=== PATIENT | male | born 1970 | race Two or more races ===

== ENCOUNTER 2022-01-22 11:46 | Emergency (ER) | payer MEDICAID, OTHER ==
[~2022-01-22] VITALS: Ht 175.3 cm; Wt 100.0 kg
[2022-01-22 14:07] VITALS: BP 125/92
[2022-01-22] MEDS ORDERED: METF-370 PO (15:28)
[2022-01-22] MEDS ORDERED: ACET-1080 PO (15:28)
== END 2022-01-22 15:35 | disposition home or self-care (01) ==
LOC: ER 11:46
DX: S60.011A Contusion of right thumb without damage to nail, initial encounter (principal); E11.9 Type 2 diabetes mellitus without complications; W23.0XXA Caught, crushed, jammed, or pinched between moving objects, initial encounter; Y93.89 Activity, other specified; Y92.89 Other specified places as the place of occurrence of the external cause; Y99.8 Other external cause status
CPT/HCPCS: 73130

== ENCOUNTER 2022-03-09 13:21 | Emergency (ER) | payer SELFPAY ==
[~2022-03-09] VITALS: Ht 175.3 cm; Wt 99.3 kg
[~2022-03-09 13:21] MED LIST: ACET-1080 PO; METF-370 PO
[2022-03-09 13:41] VITALS: BP 132/95
[2022-03-09 15:23] LABS: Basophils # (auto) 0.1 10 ^3/uL (0-0.2); Eosinophils # (auto) 0.1 10 ^3/uL (0-0.8); Eosinophils % (auto) 1.1 % (0.0-7.0); Hematocrit 45.1 % (41.0-53.0); Lymphocytes # (auto) 1.5 10 ^3/uL (0.4-5.4); Lymphocytes % (auto) 20.1 % (10.0-50.0); Mean Corpuscular Hgb Conc. 33.3 g/dL (32.0-36.0); Mean Corpuscular Volume 84.2 fL (80.0-100.0); Monocytes # (auto) 0.6 10 ^3/uL (0-1.3); Monocytes % (auto) 7.8 % (0.0-12.0); Neutrophils # (auto) 5.1 10 ^3/uL (1.6-8.6); Nucleated Red Blood Cells % 0.1 %; Red Blood Cells 5.35 10^6/uL (4.5-5.90); Red Cell Distribution Width 13.7 % (11.8-14.3); White Blood Cell 7.3 10^3/uL (4.4-10.8)
[2022-03-09 15:41] LABS: Albumin 3.4 g/dL (3.4-5.0); BUN/Creatinine Ratio 16.7; Calcium 8.8 mg/dL (8.5-10.1); Potassium 4.3 mmol/L (3.5-5.1)
[2022-03-09 15:44] LABS: Bilirubin, Total 0.4 mg/dL (0.2-1.0); Total Protein 6.3 g/dL (6.4-8.2)
[2022-03-10] MEDS ORDERED: METF-370 PO (15:12)
== END 2022-03-09 17:43 | disposition left against medical advice (07) ==
LOC: ER 13:21
DX: E11.9 Type 2 diabetes mellitus without complications (principal); Z76.0 Encounter for issue of repeat prescription; Z53.21 Procedure and treatment not carried out due to patient leaving prior to being seen by health care provider
CPT/HCPCS: 36415; 80053; 82010; 85025

== ENCOUNTER 2022-03-10 11:03 | Emergency (ER) | payer MEDICAID ==
[~2022-03-10] VITALS: Ht 175.3 cm; Wt 95.0 kg
[2022-03-10] MEDS ORDERED: METF-370 PO (15:12)
[2022-03-10 15:15] VITALS: BP 130/88
== END 2022-03-10 16:23 | disposition home or self-care (01) ==
LOC: ER 11:03
DX: E11.9 Type 2 diabetes mellitus without complications (principal); Z76.0 Encounter for issue of repeat prescription

== ENCOUNTER 2022-07-15 10:08 | Emergency (ER) | payer SELFPAY ==
[~2022-07-15] VITALS: Ht 175.3 cm; Wt 102.3 kg
[2022-07-15 18:59] LABS: Basophils # (auto) 0 10 ^3/uL (0-0.2); Basophils % (auto) 0.4 % (0.0-2.0); Eosinophils # (auto) 0.4 10 ^3/uL (0-0.8); Eosinophils % (auto) 3.1 % (0.0-7.0); Hemoglobin 15.5 g/dL (13.5-17.5); Lymphocytes # (auto) 1.1 10 ^3/uL (0.4-5.4); Mean Corpuscular Hemoglobin 28.4 pg (28.0-32.0); Mean Corpuscular Hgb Conc. 33.8 g/dL (32.0-36.0); Mean Corpuscular Volume 84.1 fL (80.0-100.0); Monocytes % (auto) 7.8 % (0.0-12.0); Neutrophils # (auto) 9.9 10 ^3/uL (1.6-8.6); Neutrophils % (auto) 79.7 % (37.0-80.0); Nucleated Red Blood Cells % 0.1 %; Red Blood Cells 5.47 10^6/uL (4.5-5.90); Red Cell Distribution Width 13.7 % (11.8-14.3); White Blood Cell 12.4 10^3/uL (4.4-10.8)
[2022-07-15 19:11] LABS: Albumin 3.6 g/dL (3.4-5.0); BUN/Creatinine Ratio 19.6; Calcium 9.5 mg/dL (8.5-10.1)
[2022-07-15 19:14] LABS: Bilirubin, Total 0.3 mg/dL (0.2-1.0)
[2022-07-15] MEDS ORDERED: ACETAMINOPHEN 325 MG TAB PO ONE (19:15)
[2022-07-15] MEDS ORDERED: SODIUM CHLORIDE 0.9% 1,000 ML IV ONE (19:15)
[2022-07-15] MEDS ORDERED: CIPR500T4 PO (19:20)
[2022-07-15 19:30] VITALS: BP 141/90
== END 2022-07-15 21:32 | disposition home or self-care (01) ==
LOC: ER 10:08
DX: K52.9 Noninfective gastroenteritis and colitis, unspecified (principal); E11.9 Type 2 diabetes mellitus without complications; Z79.899 Other long term (current) drug therapy; Z20.822 Contact with and (suspected) exposure to COVID-19
CPT/HCPCS: 36415; 80053; 85025; 87426; 87804; 96360; 99283; J7030